=== PATIENT | female | born 1975 | race American Indian/Alaskan Native ===

== ENCOUNTER 2020-05-21 21:54 | Emergency (ER) | payer SELFPAY ==
[2020-05-21 22:14] VITALS: BP 155/76
== END 2020-05-21 23:27 | disposition left against medical advice (07) ==
LOC: ED 21:54
DX: F43.29 Adjustment disorder with other symptoms (principal); Z53.21 Procedure and treatment not carried out due to patient leaving prior to being seen by health care provider